=== PATIENT | female | born 1955 | race Caucasian/White ===

== ENCOUNTER → 2016-09-12 10:30 | Outpatient (CLI) | payer MEDICARE ==
[2016-08-01 12:04] VITALS: BMI 41.8
[~2016-09-12 10:30] MED LIST: ACETAMINOPHEN325 MG NG; ACETAMINOPHEN500 M1 PO; ADVAIR 250/501 DISK INH; ADVIL200 MG; ALEVE220 MG PO; ANUSOL-HC 2.5%30 GM RC; ASPIRIN325 MG PO; ATIVAN1 MG PO; ATIVAN2 MG PO; B-12 DOTS500 MCG PO; BAYER CHEWABLE81 MG PO; BENTYL 20 MG TA20 MG PO; BENZONATATE200 MG PO; CARAFATE1 G PO; CEFTIN250 MG PO; CLARITIN 10 MG10 MG PO; COLACE100 MG PO; COMPAZINE5 MG PO; CORDARONE200 MG PO; COREG 3.1253.125 MG; COREG 3.1253.125 MG PO; CRESTOR20 MG PO; CYCLOBENZAPRINE10 MG PO; DULCOLAX10 MG/SUPP RC; DUONEB 2.5-0.5 M3 ML UPD; EFFIENT10 MG PO; EFFIENT5 MG PO; EMLA CREAM 30 G30 G1 TOPICAL; FEXOFENADINE HC60 MG PO; FLAGYL500 MG PO; FLOVENT HFA 11012 GM INH; FLOVENT HFA 22012 GM INH; FLUTICASONE PRO16 GM NS; FOLBIC RF TABL1 EACH PO; GLUCAGEN1 MG/VIAL IM; GLUCAGEN1 MG/VIAL SC; HUMALOG 30100 UNITS/ SC; HUMALOG MI100 UNITS/ SQ; HUMULIN R100 U/ML SC; HYDROCODONE-APA1 TAB PO; IBUPROFEN800 MG PO; INSTA-GLUCOSE31 GM PO; IPRAT-ALBUT 0.5-3 ML INH; IPRAT-ALBUT 0.5-3 ML UPD; LACTINEX GRANUL1 PCK NG; LACTINEX GRANUL1 PCK PO; LEVAQUIN250 MG PO; LEVAQUIN750 MG PO; LIBRAX CAPSULE1 CAP PO; LOPRESSOR25 MG PO; LOPRESSOR50 MG PO; MECLIZINE HCL25 MG PO; MEDROL DOSE PACK4 MG PO; MIDODRINE HCL5 MG PO; MIRALAX17 GM PO; MUCINEX600 MG PO; NAMENDA5 MG PO; NITROQUICK0.4 MG SL; NITROSTAT0.4 MG SL; NORCO 10/325 TA1 TA1 PO; NORCO 5/325 TAB1 TA1 PO; NOVALOG; NOVOLOG100 U/M1 SC; NYSTATIN1 PWD TOPICAL; PACERONE100 MG PO; PACERONE200 MG PO; PEPCID20 MG PO; PLAVIX75 MG PO; PRAVACHOL40 MG PO; PRILOSEC20 MG PO; PROAIR HFA8.5 GM INH; PROCTOFOAM-HC 110 GM RC; PROMOD LIQUID P30 M1 PO; PROTONIX40 MG PO; PULMICORT0.5 MG/21 INH; PULMICORT0.5 MG/21 UPD; RANEXA500 MG PO; REGLAN INJ10 MG/2 ML PO; RENA-VITE TABL0.8 MG PO; REQUIP1 MG PO; SENOKOT-S TABLE1 TAB PO; SINGULAIR10 MG PO; SODIUM FERRIC GLUCONATE COMPLEX IV; TUMS500 MG PO; TYLENOL 325 MG325 MG PO; VITAMIN B-121000 MCG PO; VITAMIN B-12500 MC1 PO; VITAMIN D250000 UNIT PO; ZOFRAN4 MG PO; ZOFRAN8 MG PO; ZOLOFT50 MG PO
== END | disposition home or self-care (01) ==
LOC: D.US 10:30
DX: I77.0 Arteriovenous fistula, acquired (principal)

== ENCOUNTER 2016-09-30 10:00 | Emergency (ER) | payer MEDICARE ==
[2016-08-01 12:04] VITALS: BMI 41.8
== END 2016-09-30 13:37 | disposition home or self-care (01) ==
LOC: D.ER 10:00
DX: S00.83XA Contusion of other part of head, initial encounter (principal); W06.XXXA Fall from bed, initial encounter; Y93.89 Activity, other specified; Y92.129 Unspecified place in nursing home as the place of occurrence of the external cause; I50.9 Heart failure, unspecified; N18.9 Chronic kidney disease, unspecified; J44.9 Chronic obstructive pulmonary disease, unspecified; E87.5 Hyperkalemia; E11.9 Type 2 diabetes mellitus without complications; Z79.4 Long term (current) use of insulin

== ENCOUNTER 2017-06-25 18:38 | Emergency (ER) | payer MEDICARE ==
[2016-08-01 12:04] VITALS: BMI 41.8
[2017-06-25 18:57] LABS: BASOPHILS 1.1 % (0-2); EOSINOPHILS 1.5 % (0-7); HEMATOCRIT 33.2 % (36.0-48.0); HEMOGLOBIN 10.9 g/dL (12-16); IMMATURE GRANULOCYTES 0.4 % (0-5); LYMPHOCYTES 44.1 % (15-50); MCH 30.2 pg (26.0-34.0); MCHC 32.8 g/dL (31.0-37.0); MEAN PLATELET VOLUME 9.9 fL (7.4-10.4); MONOCYTES 11.1 % (2-11); NEUTROPHILS 41.8 % (40-80); PLATELET COUNT 117 10x3/uL (130-400); RBC 3.61 10x6/uL (4.00-5.40); RDW 14.3 % (11.5-14.5); WBC 2.7 10x3/uL (4.8-10.8)
[2017-06-25 19:10] LABS: ALBUMIN 3.4 g/dL (3.4-5.0); ALKALINE PHOSPHATASE 66 U/L (46-116); ALT (SGPT) 10 U/L (10-68); BILIRUBIN - TOTAL 0.32 mg/dL (0.2-1.3); CALC OSMOLALITY 290 mosm/kg (275-300); CALCIUM 9.2 mg/dL (8.5-10.1); CARBON DIOXIDE 29.4 mmol/L (21.0-32.0); CHLORIDE - SERUM 99 mmol/L (98-107); CREATININE - SERUM 3.7 mg/dL (0.6-1.3); GLUCOSE 234 mg/dL (74-106); POTASSIUM - SERUM 3.8 mmol/L (3.5-5.1); PROTEIN - SERUM 6.2 g/dL (6.4-8.2); SODIUM 138 mmol/L (136-145); UREA NITROGEN 33 mg/dL (7-18); eGFR NON AFRICAN AMERICAN 13 mL/min (90-120)
[2017-06-25 19:31] LABS: CKMB 1.5 U/L (0.0-3.6); CREATINE KINASE 31 UL (21-215)
[2017-06-25 19:38] LABS: PRO BNP 38746 pg/mL (0-125)
[2017-06-25 19:39] LABS: TROPONIN-I 0.068 ng/mL (0.000-0.060)
== END 2017-06-25 22:42 | disposition home or self-care (01) ==
LOC: OBSVTIME → D.ER 18:38 → D.M2 19:57 → OBSVTIME 19:57 → D.ER 19:57
PROVIDERS: Emergency Medicine
DX: R07.9 Chest pain, unspecified (principal); N18.9 Chronic kidney disease, unspecified; Z99.2 Dependence on renal dialysis; J44.9 Chronic obstructive pulmonary disease, unspecified; E11.9 Type 2 diabetes mellitus without complications; Z79.4 Long term (current) use of insulin; I44.0 Atrioventricular block, first degree

== ENCOUNTER → 2017-10-11 10:07 | Outpatient (CLI) | payer MEDICARE ==
[2016-08-01 12:04] VITALS: BMI 41.8
== END | disposition home or self-care (01) ==
LOC: D.US 10-09 13:00
DX: I77.0 Arteriovenous fistula, acquired (principal); Z01.812 Encounter for preprocedural laboratory examination; Z01.818 Encounter for other preprocedural examination

== ENCOUNTER 2018-02-11 06:42 | Inpatient (IN) | payer MEDICARE ==
[~2018-02-11] VITALS: Ht 154.9 cm; Wt 72.5 kg
[2018-02-11] VITALS (25 sets, daily range): BP systolic 128–160; BP diastolic 36–82; BMI 30.4
--- NOTE | ~2018-02-11 | OP ---
PATIENT NAME: COBY BOWMAN MEDICAL RECORD: [id number] :53 LOCATION:[id number] ADMISSION DATE:02/11/18 SURGEON: MARGARITO ACKERMAN MD DATE OF OPERATION: 02/11/2018 REFERRING PHYSICIAN: Deejay Lord MD PREOPERATIVE DIAGNOSES: End-stage renal disease and rupture of pseudoaneurysm of PTFE loop brachiobasilic AV graft in the left arm. POSTOPERATIVE DIAGNOSES: End-stage renal disease and rupture of pseudoaneurysm of PTFE loop brachiobasilic AV graft in the left arm. OPERATION PERFORMED: Fistulogram with open revision of AVG without thrombectomy, an Acuseal jump graft and excision of infected ruptured graft segment. Ultrasound and fluoroscopically guided insertion of a right internal jugular Trialysis catheter. PREOPERATIVE NOTE: Ms. Bowman is a 62-year-old white female, group home patient with end-stage renal disease. She was brought to the Emergency Room having sustained a rupture of an aneurysmal segment of her left arm PTFE graft. I believe that she had an enlarging pseudoaneurysm and that she sustained some mild trauma to that area earlier in the day when being transferred by lift from bed to chair. I do not believe that it was primarily the trauma she suffered in the group home that caused the problem. At any rate, she has been bleeding significantly and is brought to the operating room to repair it. Under general anesthesia, the arm was prepped and draped in sterile manner with hemostasis being adequate and the bleeding having temporarily stopped. The graft was exposed and controlled with vascular loops. The infected ulcerated bleeding pseudoaneurysm was exposed with a generous skin incision and all of the exposed graft and adjacent graft was assumed to be infected and was excised. The proximal and distal ends of the graft were flushed with heparinized saline. A fistulogram was performed, which revealed no evidence of a proximal venous or arterial stenosis or residual thrombosis. Selective brachial arteriogram was obtained by passing a guidewire and then a glide catheter through the venous limb of the graft and across the anastomosis into the proximal brachial artery. Injection demonstrated no stenosis or evidence of trauma or other problem with the brachial artery. No evidence of embolization. The patient was systemically heparinized and the proximal and distal ends of the graft flushed with heparinized saline, made a new tunnel and placed a segmental interposition graft of 6 mm Acuseal in the tunnel. It was sutured end-to-end to the graft with a 6-0 Prolene. With completion of the last anastomosis and release of the occluding loops and clamps, excellent flow was established in the ended graft. The suture lines were hemostatic and there was a good thrill and continuous pulsatile Doppler flow. The wounds were once again irrigated with antibiotic solution and closed with interrupted inverted 3-0 Vicryl and roma. A sterile dressing was applied. The patient was awakened and taken to the recovery room. Note, specimens of the ruptured PA were sent for culture and sensitivity. TRANSINT:[id number] Voice Confirmation ID: [id number] DOCUMENT ID: [id number] OPERATIVE REPORT [id number] COBY BOWMAN, MARGARITO COFFEY at 1054 CC: [id number] DICTATION DATE: 03/27/18 1448 NECKTIE STITCHER: 03/27/18 1530 DIS IN 02/16/18 [id number] [place] [id number]
[2018-02-11 08:05] LABS: BASOPHILS 0.1 % (0-2); EOSINOPHILS 0.4 % (0-7); IMMATURE GRANULOCYTES 0.4 % (0-5); LYMPHOCYTES 11.6 % (15-50); MCH 26.3 pg (26.0-34.0); MCHC 31.4 g/dL (31.0-37.0); MCV 83.7 fL (80.0-100.0); MONOCYTES 4.5 % (2-11); RDW 15.2 % (11.5-14.5); WBC 7.6 10x3/uL (4.8-10.8)
[2018-02-11 08:06] LABS: HEMATOCRIT 15.9 % (36.0-48.0); PLATELET COUNT 167 10x3/uL (130-400)
[2018-02-11 08:19] LABS: ALBUMIN 2.6 g/dL (3.4-5.0); BILIRUBIN - TOTAL 0.59 mg/dL (0.2-1.3); CALCIUM 8.5 mg/dL (8.5-10.1); CARBON DIOXIDE 26.8 mmol/L (21.0-32.0); CREATININE - SERUM 2.5 mg/dL (0.6-1.3); POTASSIUM - SERUM 3.8 mmol/L (3.5-5.1); PROTEIN - SERUM 5.4 g/dL (6.4-8.2)
[2018-02-11 08:22] LABS: TROPONIN-I 0.029 ng/mL (0.000-0.060)
[2018-02-11 08:28] LABS: INR 1.36 (0.85-1.17); PROTIME 16.3 SECONDS (11.6-15.0)
[2018-02-11 12:26] LABS: BASOPHILS 0.1 % (0-2); EOSINOPHILS 0.1 % (0-7); HEMATOCRIT 25.4 % (36.0-48.0); HEMOGLOBIN 8.4 g/dL (12-16); IMMATURE GRANULOCYTES 0.1 % (0-5); LYMPHOCYTES 10.4 % (15-50); MCH 28.2 pg (26.0-34.0); MCHC 33.1 g/dL (31.0-37.0); MCV 85.2 fL (80.0-100.0); MEAN PLATELET VOLUME 9.8 fL (7.4-10.4); MONOCYTES 4.6 % (2-11); NEUTROPHILS 84.7 % (40-80); PLATELET COUNT 112 10x3/uL (130-400); RBC 2.98 10x6/uL (4.00-5.40); RDW 14.3 % (11.5-14.5); WBC 6.8 10x3/uL (4.8-10.8)
[2018-02-12] VITALS (25 sets, daily range): BP systolic 129–163; BP diastolic 37–82; Ht 154.9 cm; Wt 72.5 kg
[2018-02-12 03:45] LABS: BASOPHILS 0.2 % (0-2); EOSINOPHILS 0.9 % (0-7); HEMATOCRIT 27.3 % (36.0-48.0); IMMATURE GRANULOCYTES 0.5 % (0-5); LYMPHOCYTES 17.1 % (15-50); MCH 27.5 pg (26.0-34.0); MCV 83.5 fL (80.0-100.0); MEAN PLATELET VOLUME 9.4 fL (7.4-10.4); MONOCYTES 6.7 % (2-11); NEUTROPHILS 74.6 % (40-80); PLATELET COUNT 111 10x3/uL (130-400); RBC 3.27 10x6/uL (4.00-5.40); RDW 15.2 % (11.5-14.5); WBC 5.9 10x3/uL (4.8-10.8)
[2018-02-12 05:10] LABS: ANION GAP 14.7 mmol/L (8-16); CALCIUM 8.6 mg/dL (8.5-10.1); CREATININE - SERUM 3.1 mg/dL (0.6-1.3); POTASSIUM - SERUM 3.7 mmol/L (3.5-5.1)
[2018-02-13] VITALS (14 sets, daily range): BP systolic 133–178; BP diastolic 37–85
[2018-02-13 04:33] LABS: BASOPHILS 0.4 % (0-2); EOSINOPHILS 1.5 % (0-7); HEMATOCRIT 24.7 % (36.0-48.0); IMMATURE GRANULOCYTES 0.2 % (0-5); LYMPHOCYTES 13.6 % (15-50); MCH 27.4 pg (26.0-34.0); MCHC 32.4 g/dL (31.0-37.0); MCV 84.6 fL (80.0-100.0); MEAN PLATELET VOLUME 9.6 fL (7.4-10.4); NEUTROPHILS 75.3 % (40-80); PLATELET COUNT 109 10x3/uL (130-400); RBC 2.92 10x6/uL (4.00-5.40); RDW 15.3 % (11.5-14.5); WBC 4.8 10x3/uL (4.8-10.8)
[2018-02-13 04:56] LABS: ANION GAP 9.6 mmol/L (8-16); CALCIUM 8.6 mg/dL (8.5-10.1); CARBON DIOXIDE 31.7 mmol/L (21.0-32.0); CREATININE - SERUM 2.8 mg/dL (0.6-1.3); POTASSIUM - SERUM 3.3 mmol/L (3.5-5.1); VANCOMYCIN - RANDOM 15.7 ug/mL (10.0-20.0)
[2018-02-14 00:10] VITALS: BP 148/64
[2018-02-14 04:03] VITALS: BP 157/60
[2018-02-14 06:10] LABS: BASOPHILS 0.4 % (0-2); HEMATOCRIT 25.7 % (36.0-48.0); HEMOGLOBIN 8.3 g/dL (12-16); IMMATURE GRANULOCYTES 0.4 % (0-5); LYMPHOCYTES 16.6 % (15-50); MCH 27.7 pg (26.0-34.0); MCHC 32.3 g/dL (31.0-37.0); MCV 85.7 fL (80.0-100.0); MEAN PLATELET VOLUME 9.9 fL (7.4-10.4); MONOCYTES 8.4 % (2-11); NEUTROPHILS 73.2 % (40-80); PLATELET COUNT 111 10x3/uL (130-400); RDW 15.2 % (11.5-14.5); WBC 4.9 10x3/uL (4.8-10.8)
[2018-02-14 06:34] LABS: ANION GAP 12.4 mmol/L (8-16); CALCIUM 8.9 mg/dL (8.5-10.1); CREATININE - SERUM 3.9 mg/dL (0.6-1.3); PHOSPHOROUS 4.8 mg/dL (2.5-4.9); POTASSIUM - SERUM 4.4 mmol/L (3.5-5.1); VANCOMYCIN - RANDOM 21.5 ug/mL (10.0-20.0)
[2018-02-14 08:33] VITALS: BP 166/43
[2018-02-14 16:08] VITALS: BP 157/41
[2018-02-14 20:00] VITALS: BP 99/41
[2018-02-15] VITALS: BP 109/50
[2018-02-15 04:00] VITALS: BP 149/51
[2018-02-15 06:49] LABS: BASOPHILS 0.3 % (0-2); EOSINOPHILS 1.2 % (0-7); HEMATOCRIT 24.2 % (36.0-48.0); IMMATURE GRANULOCYTES 0.3 % (0-5); LYMPHOCYTES 23.5 % (15-50); MCH 28.3 pg (26.0-34.0); MCHC 33.1 g/dL (31.0-37.0); MCV 85.5 fL (80.0-100.0); MEAN PLATELET VOLUME 9.7 fL (7.4-10.4); MONOCYTES 6.9 % (2-11); NEUTROPHILS 67.8 % (40-80); PLATELET COUNT 105 10x3/uL (130-400); RBC 2.83 10x6/uL (4.00-5.40)
[2018-02-15 06:55] LABS: WBC 3.3 10x3/uL (4.8-10.8)
[2018-02-15 07:01] LABS: ANION GAP 12.6 mmol/L (8-16); CALCIUM 8.7 mg/dL (8.5-10.1); CARBON DIOXIDE 28.1 mmol/L (21.0-32.0); CREATININE - SERUM 3.3 mg/dL (0.6-1.3); PHOSPHOROUS 3.9 mg/dL (2.5-4.9); VANCOMYCIN - RANDOM 19.4 ug/mL (10.0-20.0)
[2018-02-15 07:05] LABS: POTASSIUM - SERUM 3.7 mmol/L (3.5-5.1)
[2018-02-15 08:37] VITALS: BP 149/44
[2018-02-15 12:02] VITALS: BP 151/44
[2018-02-15 16:25] VITALS: BP 143/54
[2018-02-15 20:00] VITALS: BP 132/43
[2018-02-16] VITALS: BP 130/49
[2018-02-16 04:00] VITALS: BP 121/40
[2018-02-16 06:38] LABS: BASOPHILS 0.5 % (0-2); EOSINOPHILS 1.5 % (0-7); HEMATOCRIT 25.2 % (36.0-48.0); HEMOGLOBIN 8.1 g/dL (12-16); IMMATURE GRANULOCYTES 0.2 % (0-5); LYMPHOCYTES 22.4 % (15-50); MCH 27.4 pg (26.0-34.0); MCHC 32.1 g/dL (31.0-37.0); MCV 85.1 fL (80.0-100.0); MONOCYTES 7.2 % (2-11); NEUTROPHILS 68.2 % (40-80); PLATELET COUNT 121 10x3/uL (130-400); RBC 2.96 10x6/uL (4.00-5.40)
[2018-02-16 06:55] LABS: ANION GAP 12.4 mmol/L (8-16); CARBON DIOXIDE 28.5 mmol/L (21.0-32.0); PHOSPHOROUS 4.4 mg/dL (2.5-4.9); POTASSIUM - SERUM 3.9 mmol/L (3.5-5.1); VANCOMYCIN - RANDOM 18.3 ug/mL (10.0-20.0)
[2018-02-16 07:06] LABS: CREATININE - SERUM 4.2 mg/dL (0.6-1.3)
[2018-02-16 08:58] VITALS: BP 96/27
[2018-02-16 16:06] VITALS: BP 136/73
== END 2018-02-16 20:18 | DRG 252 ==
LOC: D.ER 06:42 → D.MS 08:40 → D.ICU 08:40 → D.EDHOLD 08:40 → D.ICU 12:14 → D.MS 02-13 15:54
PROVIDERS: Family Medicine; Internal Medicine Nephrology; Surgery
PROC: 03WY0JZ Revision of Synthetic Substitute in Upper Artery, Open Approach (ICD-10-PCS; principal; 2018-02-11 08:30)
PROC: 05HM33Z Insertion of Infusion Device into Right Internal Jugular Vein, Percutaneous Approach (ICD-10-PCS; 2018-02-11 08:30)
PROC: 5A1D70Z Performance of Urinary Filtration, Intermittent, Less than 6 Hours Per Day (ICD-10-PCS; 2018-02-12)
DX: T82.838A Hemorrhage due to vascular prosthetic devices, implants and grafts, initial encounter (principal); N18.6 End stage renal disease; I13.2 Hypertensive heart and chronic kidney disease with heart failure and with stage 5 chronic kidney disease, or end stage renal disease; D62 Acute posthemorrhagic anemia; E11.22 Type 2 diabetes mellitus with diabetic chronic kidney disease; I50.9 Heart failure, unspecified; Z99.2 Dependence on renal dialysis; Z79.4 Long term (current) use of insulin; Z66 Do not resuscitate; H54.8 Legal blindness, as defined in USA; J44.9 Chronic obstructive pulmonary disease, unspecified; D63.1 Anemia in chronic kidney disease; F03.90 Unspecified dementia, unspecified severity, without behavioral disturbance, psychotic disturbance, mood disturbance, and anxiety; I25.10 Atherosclerotic heart disease of native coronary artery without angina pectoris; I73.9 Peripheral vascular disease, unspecified

== ENCOUNTER 2018-03-31 11:12 | Inpatient (IN) | payer MEDICARE ==
[~2018-03-31] VITALS: Ht 154.9 cm; Wt 59.0 kg
[2018-03-31 11:59] LABS: APPEARANCE CLOUDY (CLEAR); BILIRUBIN NEGATIVE (NEGATIVE); COLOR DK YELLOW (YELLOW); GLUCOSE 100 mg/dL (NEGATIVE); KETONE NEGATIVE (NEGATIVE); NITRITE NEGATIVE (NEGATIVE); PROTEIN 2+ mg/dL (NEGATIVE); UROBILINOGEN NORMAL (NORMAL)
[2018-03-31 12:00] VITALS: BP 190/49
[2018-03-31 12:00] LABS: BACTERIA MODERATE /hpf (NONE SEEN); EPITHELIAL CELLS 0-5 /hpf (0-5)
[2018-03-31 12:14] LABS: BASOPHILS 0.7 % (0-2); LYMPHOCYTES 33.6 % (15-50); MCH 28.4 pg (26.0-34.0); MCHC 32.4 g/dL (31.0-37.0); MCV 87.9 fL (80.0-100.0); MEAN PLATELET VOLUME 10.2 fL (7.4-10.4); MONOCYTES 8.1 % (2-11); NEUTROPHILS 55.6 % (40-80); PLATELET COUNT 100 10x3/uL (130-400); RBC 3.87 10x6/uL (4.00-5.40); RDW 16.2 % (11.5-14.5); WBC 3.1 10x3/uL (4.8-10.8)
[2018-03-31 12:17] LABS: UDS - AMPHET NEGATIVE QUAL (NEGATIVE); UDS - BARB NEGATIVE QUAL (NEGATIVE); UDS - BENZO NEGATIVE QUAL (NEGATIVE); UDS - COCAINE NEGATIVE QUAL (NEGATIVE); UDS - OPIATE NEGATIVE QUAL (NEGATIVE); UDS - PCP NEGATIVE QUAL (NEGATIVE); UDS - THC NEGATIVE QUAL (NEGATIVE)
[2018-03-31 12:40] LABS: ALBUMIN 3.7 g/dL (3.4-5.0); ANION GAP 12.9 mmol/L (8-16); BILIRUBIN - TOTAL 0.54 mg/dL (0.2-1.3); CALCIUM 9.6 mg/dL (8.5-10.1); CARBON DIOXIDE 30.5 mmol/L (21.0-32.0); CREATININE - SERUM 3.7 mg/dL (0.6-1.3); MAGNESIUM - SERUM 1.8 mg/dL (1.8-2.4); POTASSIUM - SERUM 3.4 mmol/L (3.5-5.1); PROTEIN - SERUM 6.8 g/dL (6.4-8.2); THYROID STIMULATING HORMONE 1.17 uIU/mL (0.36-3.74)
[2018-03-31 12:42] LABS: TROPONIN-I 0.032 ng/mL (0.000-0.060)
[2018-03-31 16:00] VITALS: BP 172/60
[2018-03-31 17:30] VITALS: BP 155/44
[2018-03-31 18:37] VITALS: BP 162/44; BMI 24.6
[2018-03-31 20:00] VITALS: BP 137/37
[2018-04-01] VITALS: BP 164/66
[2018-04-01 04:00] VITALS: BP 150/62
[2018-04-01 06:52] LABS: BASOPHILS 0.3 % (0-2); EOSINOPHILS 1.3 % (0-7); HEMATOCRIT 32.5 % (36.0-48.0); HEMOGLOBIN 10.5 g/dL (12-16); IMMATURE GRANULOCYTES 0.3 % (0-5); MCH 28.2 pg (26.0-34.0); MCHC 32.3 g/dL (31.0-37.0); MCV 87.4 fL (80.0-100.0); MEAN PLATELET VOLUME 9.6 fL (7.4-10.4); MONOCYTES 11.7 % (2-11); NEUTROPHILS 64.4 % (40-80); PLATELET COUNT 96 10x3/uL (130-400); RBC 3.72 10x6/uL (4.00-5.40); WBC 3.1 10x3/uL (4.8-10.8)
[2018-04-01 07:11] LABS: ALBUMIN 3.3 g/dL (3.4-5.0); BILIRUBIN - DIRECT 0.15 mg/dL (0.00-0.30); BILIRUBIN - INDIRECT 0.42 mg/dL (0.00-1.00); BILIRUBIN - TOTAL 0.57 mg/dL (0.2-1.3); CALCIUM 9.1 mg/dL (8.5-10.1); CARBON DIOXIDE 29.8 mmol/L (21.0-32.0); CREATININE - SERUM 4.4 mg/dL (0.6-1.3); PHOSPHOROUS 3.6 mg/dL (2.5-4.9); POTASSIUM - SERUM 3.8 mmol/L (3.5-5.1); PROTEIN - SERUM 5.8 g/dL (6.4-8.2)
[2018-04-01 08:55] VITALS: BP 152/50
[2018-04-01] MEDS ORDERED: BAYER CHEWABLE81 MG PO (13:05)
[2018-04-01] MEDS ORDERED: HYDROCODON-ACE1 EAC7 PO (13:14)
[2018-04-01] MEDS ORDERED: LINZESS145 MCG PO (13:18)
[2018-04-01 13:20] VITALS: BP 134/66
[2018-04-01 16:50] VITALS: BP 116/48
[2018-04-01] MEDS ORDERED: ISOSORBIDE MONO30 M1 PO (17:05)
[2018-04-01] MEDS ORDERED: FLORINEF 0.1 M0.1 MG PO (17:17)
[2018-04-01] MEDS ORDERED: KIONEX15 GM/60 M PO (17:18)
[2018-04-01 21:17] VITALS: BP 110/60
[2018-04-02 00:28] VITALS: BP 120/47
[2018-04-02 04:07] VITALS: BP 131/31
[2018-04-02 05:16] LABS: BASOPHILS 0.4 % (0-2); EOSINOPHILS 1.1 % (0-7); HEMATOCRIT 34.4 % (36.0-48.0); LYMPHOCYTES 29.3 % (15-50); MCH 28.2 pg (26.0-34.0); MCV 88.2 fL (80.0-100.0); MEAN PLATELET VOLUME 9.7 fL (7.4-10.4); NEUTROPHILS 59.2 % (40-80); PLATELET COUNT 89 10x3/uL (130-400); RDW 15.8 % (11.5-14.5); WBC 2.7 10x3/uL (4.8-10.8)
[2018-04-02 05:34] LABS: ANION GAP 11.6 mmol/L (8-16); CALCIUM 9.1 mg/dL (8.5-10.1); CARBON DIOXIDE 30.4 mmol/L (21.0-32.0); PHOSPHOROUS 4.2 mg/dL (2.5-4.9)
[2018-04-02 05:36] LABS: CREATININE - SERUM 5.6 mg/dL (0.6-1.3)
[2018-04-02 07:00] VITALS: BP 177/60
[2018-04-02 11:30] VITALS: BP 131/35
[2018-04-02 12:30] VITALS: Ht 154.9 cm; Wt 59.0 kg
[2018-04-02 16:30] VITALS: BP 160/80
[2018-04-02 21:56] VITALS: BP 153/46
[2018-04-03 05:42] VITALS: BP 179/48
[2018-04-03 05:46] LABS: BASOPHILS 0.7 % (0-2); EOSINOPHILS 0.7 % (0-7); HEMATOCRIT 35.4 % (36.0-48.0); HEMOGLOBIN 11.4 g/dL (12-16); LYMPHOCYTES 30.3 % (15-50); MCH 28.4 pg (26.0-34.0); MCHC 32.2 g/dL (31.0-37.0); MCV 88.1 fL (80.0-100.0); MEAN PLATELET VOLUME 9.6 fL (7.4-10.4); MONOCYTES 10.1 % (2-11); NEUTROPHILS 58.2 % (40-80); PLATELET COUNT 87 10x3/uL (130-400); RBC 4.02 10x6/uL (4.00-5.40); RDW 15.5 % (11.5-14.5); WBC 2.8 10x3/uL (4.8-10.8)
[2018-04-03 05:57] LABS: ANION GAP 12.7 mmol/L (8-16); CALCIUM 9.3 mg/dL (8.5-10.1); CARBON DIOXIDE 26.9 mmol/L (21.0-32.0); CREATININE - SERUM 6.5 mg/dL (0.6-1.3); PHOSPHOROUS 5.2 mg/dL (2.5-4.9); POTASSIUM - SERUM 4.6 mmol/L (3.5-5.1)
[2018-04-03 08:47] VITALS: BP 179/48
[2018-04-03 15:10] VITALS: BP 157/48
[2018-04-03 20:00] VITALS: BP 131/36
[2018-04-04] VITALS: BP 144/33
[2018-04-04 04:00] VITALS: BP 150/36
[2018-04-04 04:23] LABS: BASOPHILS 0.7 % (0-2); EOSINOPHILS 2.1 % (0-7); HEMATOCRIT 35.7 % (36.0-48.0); HEMOGLOBIN 11.3 g/dL (12-16); LYMPHOCYTES 31.6 % (15-50); MCH 28.1 pg (26.0-34.0); MCHC 31.7 g/dL (31.0-37.0); MCV 88.8 fL (80.0-100.0); MONOCYTES 8.7 % (2-11); NEUTROPHILS 56.9 % (40-80); PLATELET COUNT 77 10x3/uL (130-400); RBC 4.02 10x6/uL (4.00-5.40); RDW 15.3 % (11.5-14.5); WBC 2.9 10x3/uL (4.8-10.8)
[2018-04-04 04:44] LABS: ANION GAP 10.2 mmol/L (8-16); CALCIUM 8.8 mg/dL (8.5-10.1); CARBON DIOXIDE 32.5 mmol/L (21.0-32.0)
[2018-04-04 04:47] LABS: CREATININE - SERUM 4.8 mg/dL (0.6-1.3); POTASSIUM - SERUM 3.7 mmol/L (3.5-5.1)
[2018-04-04 09:34] VITALS: BP 83/43
[2018-04-04 12:55] VITALS: BP 155/41
[2018-04-04 17:51] VITALS: BP 84/36
== END 2018-04-04 22:57 | disposition home health service (06) | DRG 56 ==
LOC: D.ER 11:12 → D.M2 14:16 → D.EDHOLD 14:16 → D.M2 17:47 → D.SDCHOLD 04-03 16:23 → D.M2 04-04 22:57
PROVIDERS: Family Medicine; Internal Medicine Nephrology
PROC: 5A1D70Z Performance of Urinary Filtration, Intermittent, Less than 6 Hours Per Day (ICD-10-PCS; principal; 2018-04-03)
DX: I69.318 Other symptoms and signs involving cognitive functions following cerebral infarction (principal); N18.6 End stage renal disease; R40.2343 Coma scale, best motor response, flexion withdrawal, at hospital admission; R40.2213 Coma scale, best verbal response, none, at hospital admission; I13.2 Hypertensive heart and chronic kidney disease with heart failure and with stage 5 chronic kidney disease, or end stage renal disease; R62.7 Adult failure to thrive; F01.50 Vascular dementia, unspecified severity, without behavioral disturbance, psychotic disturbance, mood disturbance, and anxiety; E11.22 Type 2 diabetes mellitus with diabetic chronic kidney disease; I50.9 Heart failure, unspecified; Z99.2 Dependence on renal dialysis; E11.40 Type 2 diabetes mellitus with diabetic neuropathy, unspecified; I48.91 Unspecified atrial fibrillation; I25.10 Atherosclerotic heart disease of native coronary artery without angina pectoris; J44.9 Chronic obstructive pulmonary disease, unspecified; D63.1 Anemia in chronic kidney disease; F41.9 Anxiety disorder, unspecified; R40.2133 Coma scale, eyes open, to sound, at hospital admission